=== PATIENT | male | born 1995 | race American Indian/Alaskan Native ===

== ENCOUNTER 2017-05-16 12:52 | Emergency (ER) | payer SELFPAY ==
--- NOTE | 2017-05-16 13:22 | EDM.PDOC ---
ED HPI GENERAL MEDICAL PROBLEM - General Chief Complaint: Skin Complaint Stated Complaint: [id number] LUMP Time Seen by Provider: 05/16/17 13:17 Source of Information: Reports: Patient History Limitations: Reports: No Limitations - History of Present Illness INITIAL COMMENTS - FREE TEXT/NARRATIVE: Pt states that he felt a lump on the right side of his scrotum. Denies pain but states that he is fearful of it being cancer. Denies penile drainage or pain/ burning with urination. Onset Date: 05/15/17 Location: Reports: Pelvis Improves with: Reports: None Worsens with: Reports: None - Related Data Allergies Allergy/AdvReac Type Severity Reaction Status Date / Time ampicillin [From Unasyn] Allergy Cannot Verified 05/16/17 13:18 Remember diphenhydramine Allergy Cannot Verified 05/16/17 12:59 [From Unisom Remember (diphenhydramine)] sulbactam [From Unasyn] Allergy Cannot Verified 05/16/17 13:18 Remember Home Meds: Home Meds Albuterol [IJD: Ventolin HFA] 1 puff INH .TWICE DAILY 05/16/17 [History] Past Medical History Respiratory History: Reports: Asthma - Past Surgical History GI Surgical History: Reports: Appendectomy Social & Family History - Family History Family Medical History: Noncontributory - Tobacco Use Smoking Status *Q: Former Smoker Used Tobacco, but Quit: Yes Month Tobacco Last Used: ? - Caffeine Use Caffeine Use: Reports: Coffee, Tea - Recreational Drug Use Recreational Drug Use: No ED ROS GENERAL - Review of Systems Review Of Systems: ROS reveals no pertinent complaints other than HPI. ED EXAM, SKIN/RASH Exam: See Below Exam Limited By: No Limitations General Appearance: Alert, WD/WN, No Apparent Distress Respiratory/Chest: No Respiratory Distress, Lungs Clear, Normal Breath Sounds, No Accessory Muscle Use, Chest Non-Tender Cardiovascular: Normal Peripheral Pulses, Regular Rate, Rhythm, No Edema, No Gallop, No JVD, No Murmur, No Rub Skin: Warm, Dry, Intact, Normal Color, No Rash, Erythema Location, Skin: Genital (scrotum) Characteristics: Erythematous, Other (firm pustular lump to right scrotom at hair line. non tender, multiple follicles present in lump) Associated features: Induration Lymphatic: No Adenopathy Course - Vital Signs Last Recorded V/S: Last Vital Signs Temp 98.9 F 05/16/17 13:00 Pulse 90 05/16/17 13:00 Resp 18 05/16/17 13:00 BP 139/75 05/16/17 13:00 Pulse Ox 99 05/16/17 13:00 Departure - Departure Time of Disposition: 13:22 Disposition: [facility] Condition: Good Clinical Impression: Folliculitis - Discharge Information Instructions: Abscess Forms: ED Department Discharge Additional Instructions: Keep area clean and dry. Put warm rags to the area a few times a day to help soften the area. Take the antibiotic. Follow up in 5 days at clinic for re- evaluation. Return for any worsening symptoms.
== END 2017-05-16 13:32 | disposition home or self-care (01) ==
LOC: DL.ED 12:52
CPT/HCPCS: 99283